=== PATIENT | female | born 1990 | race Caucasian/White ===

== ENCOUNTER 2018-10-25 23:15 | Emergency (ER) | payer MEDICAID, SELFPAY ==
[2018-10-25 23:16] VITALS: BP 123/78; PULSE 82; RESP 18; TEMP 36.2; O2SAT 96; BMI 30.7
--- NOTE | 2018-10-25 23:30 | ED.VISSUMM ---
- ER Visit Summary Date of Service: 10/25/18 Chief Complaint: Acute abdominal pain History of Present Illness: The patient is a 28 F who presents the emergency department 45 minutes after a severe lower. Patient states that she went to urinate and immediately afterwards began to have this pain. States it feels like somebody punched her in her uterus. She notes the pain got so bad that she had some nausea and vomiting. She notes a normal bowel movement earlier in the day. She is on oral control and is not set to start her period. She denies any urinary symptoms. No fevers or rashes. No vaginal discharge. Physical Examination: Afebrile vital signs are stable Gen: Well-nourished well-developed patient appears uncomfortable. Head: Normocephalic atraumatic Eyes: Perrl EOMI ENT: TMs clear no rhinorrhea moist mucous membranes Neck: Supple no lymphadenopathy no JVD nontender CVS: Regular rate rhythm no murmurs normal S1-S2 Respiratory: No distress clear to auscultation bilaterally chest nontender Abdomen: Soft mildly tender to palpation in the suprapubic region nondistended normal bowel sounds no masses Back: Nontender Extremity: Nontender no edema Skin: Normal color no rash Neuro: alert orientated ?3 CN II-XII intact normal strength sensation reflexes gait cerebellar Psych: Normal affect normal mood Test Results: CBC BMP and urine were negative. CT the pelvis was ordered. Emergency Department Course and Treatment: Received Toradol and Zofran. Care of the patient will be checked out to the night physician for check of CT and final disposition Impression: [] This note was generated with Letsmake dictation software. It may contain incorrect words, spelling, and punctuation that were not noted in review of the chart prior to signing <Sixto Holbrook - Last Filed: 10/26/18 00:28> - ER Visit Summary Patient was signed out to me to follow-up on CT the abdomen pelvis. This shows an enlarged left ovary. Torsion cannot be ruled out. Pelvic ultrasound was recommended. Pelvic ultrasound shows No ovarian torsion. Complex left ovarian lesion with cystic and solid components and septations. This likely represents a collapsing follicle with hemorrhage. Ovarian neoplasias within the differential but considered less likely. Patient was advised of these findings. She is much more comfortable on reevaluation. She was advised to follow-up with gynecology. She understands to return for new or worsening symptoms and was discharged home. This note was generated with Letsmake dictation software. It may contain incorrect words, spelling, and punctuation that were not noted in review of the chart prior to signing <Venkat Smith - Last Filed: 10/26/18 03:09> ED Disposition <Sixto Holbrook - Last Filed: 10/26/18 00:28> <Venkat Smith - Last Filed: 10/26/18 03:09> - Plan for ED Patient: Referrals: Jose Brown MD [Primary Care Provider] -
[2018-10-25] MEDS: Ondansetron 4 MG/2 ML Vial IV (23:42)
[2018-10-25] MEDS: Ketorolac 30 MG/ML Syringe IV (23:42)
[2018-10-25 23:44] LABS: Mucous, Urine 0 SEEN /hpf (<or=2+)
[2018-10-25 23:59] LABS: Absolute Neutrophil Count 5.2 X10^3/uL (2.0-7.7); Basophil# 0.05 X10^3/uL; Basophil% 0.6 % (0-1); Eosinophil# 0.16 X10^3/uL; Eosinophils% 1.8 % (0-5); Hematocrit 38.1 % (37-47); Hemoglobin 13.1 g/dl (12.0-15.0); Lymphocyte % 34.1 % (19-41); Mean Corp Hgb Conc 34.4 g/gl (32-36); Mean Corpuscular Hgb 30.2 pg (27.0-32.0); Mean Corpuscular Volume 87.8 fL (81-99); Mean Platelet Vol. 9.4 fl (6.2-12.0); Monocyte# 0.53 X10^3/uL; Monocyte% 5.8 % (0-10); Neutrophil # 5.23 X10^3/uL (2.7-7.7); Neutrophil % 57.5 % (47-70); Platelet Count 305 K/mm3 (150-450); RBC Distribution Width CV 12.1 % (11.6-14.6); RBC Distribution Width SD 37.8 fl (35.1-43.9); Red Blood Count 4.34 M/mm3 (4.2-5.4); White Blood Count 9.1 K/mm3 (4.4-11.0)
[2018-10-26] LABS: Color, Urine Yellow (Yellow); Glucose, Dipstick Normal (Normal); Ketone-Dipstick Negative (Negative); Leukocyte Esterase-Dipstick 25 /ul (Negative); Nitrite-Dipstick Negative (Negative); Occult Blood-Urine 10 /ul (Negative); Protein-Dipstick 30 mg/dl (Negative); Specific Gravity, Urine 1.025 (1.002-1.030); Urine Bilirubin Dipstick Negative (Negative); Urine Clarity Sl. Cloudy (Clear); Urine Urobilinogen 1 mg/dl (Normal)
[2018-10-26 00:01] LABS: Internal QC Validated? YES +Cl - CLEAR BKGD; Pregnancy, Urine Negative Negative
[2018-10-26 00:06] LABS: Anion Gap 5 (5-15); BUN 11 mg/dL (7-18); BUN/Creat Ratio 14.8 RATIO (10-20); Calcium,Total 9.3 mg/dL (8.5-10.1); Chloride 105 mmol/L (98-107); Creatinine, Serum 0.74 mg/dL (0.55-1.02); EST Glomerular Filtration Rate 98 mL/min (>60); Est Glom Filt Rate - Afr Amer 119 mL/min (>60); Estimated Creatinine Clearance 88.72 ml/min; Glucose 120 mg/dL (74-106); Potassium 3.9 mmol/L (3.5-5.1); Sodium Level 136 mmol/L (136-145)
[2018-10-26 00:15] LABS: Bacteria 1+ /hpf (None Seen); Red Blood Cells-Urine 0-5 SEEN /hpf (0-5); Squamous Epithelial Cells - UA 0-5 SEEN /hpf (5-10); White Blood Cells 5-10 SEEN /hpf (0-5)
[2018-10-26 00:17] LABS: POSITIVE COUNT NO; POSITIVE DIFFERENTIAL NO; POSITIVE MORPHOLOGY NO
--- NOTE | 2018-10-26 00:19 | CT_ITS ---
HISTORY: LOW MID ABDOMEN PAIN,NAUSEA AND VOMITING TECHNIQUE: Helically acquired images were obtained of the abdomen and pelvis without oral or IV contrast. A radiation dose optimization technique was used for this scan. COMPARISON: None FINDINGS: # of images incl. paperwork: 443 LUNG BASES: clear. CT abdomen: Bones are unremarkable. The gallbladder remains. The liver is enlarged and fattily infiltrated. Thespleen, pancreas, and adrenal glands are normal. Nonobstructing right nephrolithiasis without right hydronephrosis. I cannot follow the right ureter all the way to the urinary bladder, however, no ureteric stones are perceived Tiny nonobstructing left nephroliths as well.. The aorta is minimally disease with a tiny focus of calcific plaque. There is no intra-or extrahepatic biliary ductal dilatation. CT pelvis: No ascites is present. The the uterus is not enlarged. There may be enlargement of the left ovary. It is difficult to differentiate all margins of the left ovary from the adjacent small bowel on this noncontrast study. I estimate the margins of the left ovary to be 4.8 x 5 x 3.9 cm. The right ovary is not enlarged.. The appendix is normal. Series 2 image 106. The bladder is decompressed. Bowel gas pattern is normal. CT/Abdomen/Pelvis without Cont IMPRESSION: Enlarged left ovary. In this 28-year-old female this is likely due to a follicle. The possibility of torsion, however, cannot be excluded. Recommend comparison to do a pelvic ultrasound. Hepatic steatosis. Individualized dose optimization techniques were used for this CT. at 0102 Reported and signed by: Stephen Centeno MD Electronically Signed: Stephen Centeno MD at 1:01 EDT Tel , Service support ,
--- NOTE | 2018-10-26 01:08 | US_ITS ---
HISTORY: Pelvic pain. Comparison study is a CT scan of the abdomen and pelvis from less than 2 hours earlier. That demonstrated a heterogeneous enlarged left ovary 86 images. All images or endovaginal images. Findings: Many nabothian cysts. Physiologic amount of free fluid. The uterus is homogeneous in appearance and not enlarged. The endometrial stripe is well demonstrated and without flow on color Doppler imaging. The endometrial stripe thickness is 10 mm which is normal. Adnexal vasculature suggests the patient is multiparous. The uterus measures 9.1 x 4.3 x 5 cm. The right ovary measures 2.4 x 1.6 x 2.2 cm. Multiple follicles are present on the right ovary. Doppler Doppler imaging demonstrates flow. Pulse-wave Doppler imaging demonstrates arterial flow to right ovarian parenchyma. The left ovary measures 3.6 x 2.8 right 3.9 cm. There is a heterogeneous complex lesion within the left ovary. It is generally hypoechoic relative to the remainder of the left ovarian parenchyma, however, it is not anechoic. The largest portion of this lesion measures 3.1 cm. A more cystic component centrally measures 2 cm. Color Doppler imaging demonstrates flow within the periphery of this lesion within the left ovarian parenchyma. Pulse-wave Doppler imaging demonstrates arterial and venous waveforms. Another image of the left ovary demonstrates this heterogeneous complex cystic lesion within the left ovary to measure 2.9 x 1.5 x 3 cm. This is a accurate assessment. US/Transvaginal Non- IMPRESSION: No ovarian torsion. Complex left ovarian lesion with cystic and solid components and septations. This likely represents a collapsing follicle with hemorrhage. Ovarian neoplasias within the differential but considered less likely. Follow-up imaging in 6-12 weeks at different stage of the patient's menstrual cycle may be beneficial to assure resolution and assess for change. at 0303 Reported and signed by: Stephen Centeno MD Electronically Signed: Stephen Centeno MD at 3:02 EDT Tel , Service support ,
[2018-10-26 01:46] VITALS: BP 124/96; PULSE 77; RESP 17; O2SAT 100
--- NOTE | 2018-10-26 03:12 | ED.DEP ---
ED Disposition - Plan for ED Patient: Instructions: Ovarian Cyst Referrals: Jose Brown MD [Primary Care Provider] - Additional Instructions: Follow-up with gynecology. Although your ultrasound findings are most likely related to an ovarian cyst more serious problem such as cancer cannot be ruled out. You should have another ultrasound in 6-12 weeks.
[2018-10-26 03:21] VITALS: BP 127/80; PULSE 79; RESP 18; O2SAT 96
== END 2018-10-26 03:22 | disposition home or self-care (01) ==
LOC: ED 23:47
PROVIDERS: Emergency Provider Emergency Medicine; Family Provider Family Medicine; PCP Family Medicine
DX: N83.8 Other noninflammatory disorders of ovary, fallopian tube and broad ligament (principal); R10.30 Lower abdominal pain, unspecified; R11.2 Nausea with vomiting, unspecified; Z79.3 Long term (current) use of hormonal contraceptives
CPT/HCPCS: 74176; 76830; 80048; 81001; 81025; 85025; 93976; 96374; 96375; 99283; A4216; J2405

== ENCOUNTER 2022-04-20 22:58 | Emergency (ER) | payer MEDICAID, SELFPAY ==
[2022-04-20 22:59] VITALS: BP 129/93; PULSE 134; RESP 18; TEMP 35.6; BMI 35.6
--- NOTE | 2022-04-20 23:21 | CT_ITS ---
STUDY: CT ABDOMEN AND PELVIS WITH CONTRAST REASON FOR EXAM: Female, 31 years old. RUQ pain RADIATION DOSAGE (If Supplied By Facility): CTDIvol = ( 13.19 ) mGy, DLP = ( 1216.74 ) mGycm TECHNIQUE: Transaxial images were obtained from the dome of the diaphragm to the symphysis pubis without oral contrast. IV 100mL Isovue-370 was administered. Sagittal and coronal images were reconstructed. Individualized dose optimization techniques were used for this CT. COMPARISON: None. FINDINGS: The visualized lung bases are unremarkable. The visualized portions of the heart are within normal limits. Normal liver. Normal gallbladder and extrahepatic biliary system. Normal spleen. Normal pancreas. Normal bilateral adrenal glands. Multiple nonobstructive stones in the right kidney the largest measures 6 mm in diameter. Normal left kidney. Normal visualized stomach. There is thickening of the marinelli of small bowel loops in the distal jejunum and proximal ileum may represent inflammatory bowel disease. Normal colon. The appendix is visualized and appears normal. Normal abdominal aorta. Normal inferior vena cava. Normal retroperitoneum. Normal urinary bladder. There is small amount of fluid near the right lobe of the liver. There is moderate amount of free fluid in the pelvis. Normal abdominal wall. Normal osseous structures. CT/Abdomen/Pelvis W IV Cont ONLY IMPRESSION: There is small amount of fluid near the right lobe of the liver. There is moderate amount of free fluid in the pelvis. There is thickening of the marinelli of small bowel loops in the distal jejunum and proximal ileum may represent inflammatory bowel disease. Multiple nonobstructive stones in the right kidney the largest measures 6 mm in diameter. Electronically Signed: Andria Erwin MD at 1:30 EST ,
[2022-04-20 23:52] LABS: Absolute Lymphocyte Count 2.37 X10^3/uL (0.83-4.51); Absolute Neutrophil Count 15.3 X10^3/uL (2.0-7.7); Basophil# 0.09 X10^3/uL; Basophil% 0.5 % (0-1); Eosinophil# 0.24 X10^3/uL; Eosinophils% 1.3 % (0-5); Hematocrit 42.9 % (37-47); Hemoglobin 14.6 g/dL (12.0-15.0); Lymphocyte # 2.37 X10^3/ul (0.83-4.51); Lymphocyte % 12.6 % (19-41); Mean Corpuscular Volume 88.1 fL (81-99); Mean Platelet Vol. 9.2 fl (6.2-12.0); Monocyte# 0.68 X10^3/uL; Monocyte% 3.6 % (0-10); NRBC Flagged by Analyzer 0 % (0-5); Neutrophil # 15.27 X10^3/uL (2.7-7.7); Neutrophil % 81.4 % (47-70); Platelet Count 387 K/mm3 (150-450); RBC Distribution Width CV 12.5 % (11.6-14.6); RBC Distribution Width SD 40.3 fl (35.1-43.9); Red Blood Count 4.87 M/mm3 (4.2-5.4); White Blood Count 18.8 K/mm3 (4.4-11.0)
[2022-04-21] MEDS: HYDROmorphone 0.5 MG/0.5 ML SYRINGE IV ×2 (00:01→03:19)
[2022-04-21] MEDS: Ondansetron 4 MG/2 ML Vial IV ×2 (00:04→03:20)
[2022-04-21 00:10] LABS: AST(SGOT) 41 U/L (15-37); Alanine Aminotransfer ALT/SGPT 68 U/L (13-56); Albumin, Serum 3.7 g/dL (3.2-5.0); Alkaline Phosphatase 105 U/L (45-117); Anion Gap 10 (5-15); BUN 12 mg/dL (7-18); BUN/Creat Ratio 16.5 RATIO (10-20); Bilirubin, Direct 0.14 mg/dL (0.00-0.30); Calcium,Total 9.2 mg/dL (8.5-10.1); Chloride 106 mmol/L (98-107); Creatinine, Serum 0.73 mg/dL (0.55-1.02); EST Glomerular Filtration Rate 98 mL/min (>60); Est Glom Filt Rate - Afr Amer 119 mL/min (>60); Globulin 3.9 g/dL (2.2-4.2); Glucose 190 mg/dL (74-106); Lipase 82 U/L (73-393); Potassium 3.7 mmol/L (3.5-5.1); Protein, Total 7.6 g/dL (6.4-8.2); Sodium Level 137 mmol/L (136-145)
[2022-04-21 00:36] LABS: Red Blood Cells-Urine 0 SEEN /hpf (0-5)
[2022-04-21 00:38] LABS: Color, Urine Amber (Yellow); Glucose, Dipstick Normal (Normal); Leukocyte Esterase-Dipstick 100 /ul (Negative); Nitrite-Dipstick Negative (Negative); Occult Blood-Urine Negative /ul (Negative); Protein-Dipstick 100 mg/dl (Negative); Specific Gravity, Urine 1.025 (1.002-1.030); Urine Clarity Cloudy (Clear); Urine Urobilinogen 4 mg/dl (Normal)
[2022-04-21 00:39] LABS: Ketone-Dipstick 150 mg/dl (Negative); Urine Bilirubin Dipstick 3 mg/dL (Negative)
[2022-04-21 00:40] LABS: Calcium Oxalate Crystals Ur 0 SEEN /hpf (<or=2+); Coarse Granular Cast 0 SEEN /lpf (0-5 /lpf); Fine Granular Cast- Urine 0 SEEN /lpf (0-5); Red Cell Cast 0 SEEN /lpf (None Seen); Renal Epithelial Cells 0 SEEN /hpf (0-5); Transitional Epithelial - Ur 0 SEEN /hpf (0-5); Waxy Cast-Urine 0 SEEN /lpf (None Seen); White Cell Cast 0 SEEN /lpf (None Seen)
[2022-04-21 00:41] LABS: Internal QC Validated? YES +Cl - CLEAR BKGD; Pregnancy, Urine Negative Negative
[2022-04-21 00:47] LABS: Squamous Epithelial Cells - UA 0-5 SEEN /hpf (5-10); White Blood Cells 5-10 SEEN /hpf (0-5)
[2022-04-21 00:48] LABS: Bacteria 4+ /hpf (None Seen); Hyaline Cast 0-5 SEEN /lpf (0-5); Mucous, Urine 2+ /hpf (<or=2+)
--- NOTE | 2022-04-21 01:06 | EX.ED.DYSGE1 ---
HPI History of Present Illness Chief Complaint: Abd Pain Narrative Narrative: Patient is a 31-year-old female with past medical history of psoriasis as well as hypertension and anxiety. She states that over the past few weeks she has had 3 different bouts where she has developed abdominal pain after eating. She states that today she ate noodles mixed in a garlic and olive oil base and then roughly 1 hour later began with bouts of abdominal pain. She states that the pain is more in the right upper quadrant. She states pain has been persistent since approximately 3 PM and then started around 9 PM she developed bouts of nausea and vomiting also with loose stool/diarrhea. She states because of the recurrent nature of her symptoms and the fact that this seems to be worsening with time instead of improving she presents for evaluation [facility] Medical History Anxiety Hypertension Non-alcoholic fatty liver disease Psoriasis Home Medications adalimumab 40 mg/0.4 mL subcutaneous pen kit (Humira(CF) Pen) 40 mg subcut QWEEK 04/20/22 [History Last Taken Unknown] hydrochlorothiazide 12.5 mg capsule 25 mg PO DAILY 04/20/22 [History Last Taken Unknown] lisinopril 10 mg tablet 10 mg PO DAILY 04/20/22 [History Last Taken Unknown] norgestimate 0.25 mg-ethinyl estradiol 35 mcg tablet (Hui) 1 tab PO DAILY 04/20/22 [History Last Taken Unknown] paroxetine HCl 10 mg tablet 10 mg PO DAILY 04/20/22 [History Last Taken Unknown] cephalexin 500 mg capsule 500 mg PO TID 7 days #21 caps 04/21/22 [Rx Last Taken Unknown] ondansetron 4 mg disintegrating tablet 4 mg PO TID PRN nausea and vomiting #21 tabs 04/21/22 [Rx Last Taken Unknown] oxycodone-acetaminophen 5 mg-325 mg tablet (Percocet) 1 tab PO Q6H PRN pain 3 days #12 tabs 04/21/22 [Rx Last Taken Unknown] prednisone 20 mg tablet 40 mg PO DAILY 5 days #10 tabs 04/21/22 [Rx Last Taken Unknown] Allergy/AdvReac Type Severity Reaction Status Date / Time erythromycin base Allergy Hives Verified 04/20/22 23:21 metronidazole [From Flagyl] Allergy Itching Verified 04/20/22 23:21 Social History Smoking Status: Never smoker ROS ROS ED Constitutional Constitutional ED: Denies chills or fever(s) ENT ENT ED: Denies sore throat Cardiovascular Cardiovascular: Denies chest pain Respiratory/Chest Respiratory/Chest: Denies cough or dyspnea Gastrointestinal Gastrointestinal: Reports abdominal pain, diarrhea, nausea and vomiting Genitourinary Genitourinary ED: Denies dysuria or hematuria Musculoskeletal Musculoskeletal: Denies back pain or myalgias Integumentary Denies rash Neurologic Neurologic: Denies headache(s) Hematologic/Lymphatic Hematologic/Lymphatic: Denies easy bleeding or easy bruising EXAM Physical Exam Const Vital Signs: 04/20/22 22:59 04/20/22 22:59 04/21/22 01:11 Temperature 96.0 F L 96.0 F L Temperature Source Temporal Temporal Pulse Rate 134 H 134 H 93 Respiratory Rate 18 18 18 Blood Pressure 129/93 H 129/93 H Blood Pressure Mean 105 105 Pulse Ox 95 Oxygen Delivery Method Room Air Positive well nourished and well developed General Appearance ED: well developed HEENT Reports dry mucous membranes Mouth ED: Yes dry mucous membranes Mouth: dry mucous membranes Eyes PERRL and EOMs intact bilaterally General Eye ED: Negative for scleral icterus Neck supple Resp normal respiratory effort and clear to auscultation bilaterally Cardio regular rhythm Rate: tachycardic GI non-distended GI Narrative: Abdomen is soft and nondistended with hyperactive bowel sounds. There is mild diffuse pain on palpation but greatest in the right upper quadrant. However negative Sutton sign Auscultation: hyperactive bowel sounds Palpation: soft Back/Spine no CVA tenderness Extremity normal to inspection Neuro oriented x3 and CN's II-XII intact bilaterally Sensorium / Orientation: alert Psych mental status grossly normal Skin Skin Narrative: Patient has flaking erythematous skin consistent with psoriasis but no psych [place] changes to suggest infection MDM MDM MDM Narrative Medical decision making narrative: Patient presented to the ER tachycardic but otherwise with stable vitals. Her history of recurrent abdominal pain mainly after eating more localized to the right upper quadrant was concerning for gallbladder dysfunction. I cannot obtain an ultrasound at this time of night so a CAT scan was ordered. Patient's blood work revealed leukocytosis with a white count of 18.8 but she is afebrile and I feel this is most likely related to stress response versus secondary infection. Patient's liver enzymes are only slightly elevated and her lipase was normal. CT scan showed a normal-appearing gallbladder but she had thickened intestines with fluid most consistent with inflammatory bowel disorder. There is no signs of abscess perforation or obstruction associated with this. The patient denied any dysuria but she has +4 bacteria in her urine without contamination. Based on her immunosuppression status I do feel would be appropriate to put her on antibiotics. On reevaluation the patient's had improvement of her pain and she is able to tolerate water without any further bouts of vomiting. Therefore this time I will place her on antibiotics for the UTI she will follow-up with her family doctor to discuss outpatient ultrasound regarding her recurrent abdominal pain after eating but as she has had improvement of her pain and is able to tolerate fluids without further bouts of vomiting she is otherwise safe for discharge Lab Data Attestation: I reviewed the patient's lab results. Labs: Laboratory Results - last 24 hr 04/20/22 04/20/22 04/21/22 23:46 23:46 00:32 WBC 18.8 H RBC 4.87 Hgb 14.6 Hct 42.9 MCV 88.1 MCH 30.0 MCHC 34.0 RDW Std Deviation 40.3 RDW Coeff of [place] 12.5 Plt Count 387 MPV 9.2 Immature Gran % (Auto) 0.600 Neut % (Auto) 81.4 H Lymph % (Auto) 12.6 L [place] % (Auto) 3.6 Eos % (Auto) 1.3 Baso % (Auto) 0.5 Absolute Neuts (auto) 15.3 H Absolute Lymphs (auto) 2.37 Nucleated RBC % 0 Sodium 137 Potassium 3.7 Chloride 106 Carbon Dioxide 21.0 Anion Gap 10 BUN 12 Creatinine 0.73 Estim Creat Clear Calc 87.50 Est GFR (MDRD) Af Amer 119 Est GFR (MDRD) Non-Af 98 BUN/Creatinine Ratio 16.5 Glucose 190 H Calcium 9.2 Total Bilirubin 0.60 Direct Bilirubin 0.14 AST 41 H ALT 68 H Alkaline Phosphatase 105 Total Protein 7.6 Albumin 3.7 Globulin 3.9 Lipase 82 Urine Color Priti Urine Clarity Cloudy Urine pH 5.0 Ur Specific [place] 1.025 Urine Protein 100 H Urine Glucose (UA) Normal Urine Ketones 150 A* Urine Occult Blood Negative Urine Nitrite Negative Urine Bilirubin 3 H Urine Urobilinogen 4 H Ur Leukocyte Esterase 100 H Urine RBC 0 SEEN Urine WBC 5-10 SEEN Ur Squamous Epith Cells 0-5 SEEN Ur Transition Epith Cell 0 SEEN Ur Renal Epithelial Cell 0 SEEN Calcium Oxalate Crystal 0 SEEN Urine Bacteria 4+ Hyaline Casts 0-5 SEEN Fine Granular Casts 0 SEEN Coarse Granular Casts 0 SEEN Waxy Casts 0 SEEN RBC Casts 0 SEEN WBC Casts 0 SEEN Urine Mucus 2+ Urine Test Negative Radiography Diagnostic Testing: Clinical Impression(s) from Imaging Studies Abdomen/Pelvis CT 04/20/22 23:21 IMPRESSION: There is small amount of fluid near the right lobe of the liver. There is moderate amount of free fluid in the pelvis. There is thickening of the marinelli of small bowel loops in the distal jejunum and proximal ileum may represent inflammatory bowel disease. Multiple nonobstructive stones in the right kidney the largest measures 6 mm in diameter. Electronically Signed: Andria Erwin MD at 1:30 EST Reading Location ID and State: [address] [place] [address] Tel , Service support , Discharge Plan Triage Chief Complaint: Abd Pain ED Provider: Kei Ag Dx/Rx/DC Orders Clinical Impression: Urinary tract infection, Dehydration, Nausea & vomiting, Nonspecific abdominal pain Instructions: Abdominal Pain, Urinary Tract Infections in Women Prescriptions: New prednisone 20 mg tablet 40 mg PO DAILY 5 Days Qty: 10 0RF cephalexin 500 mg capsule 500 mg PO TID 7 Days Qty: 21 0RF ondansetron 4 mg tablet,disintegrating 4 mg PO TID PRN (Reason: nausea and vomiting) Qty: 21 0RF oxycodone-acetaminophen [Percocet] 5-325 mg tablet 1 tab PO Q6H PRN (Reason: pain) 3 Days Qty: 12 0RF No Action norgestimate-ethinyl estradiol [Hui] 0.25-35 mg-mcg tablet 1 tab PO DAILY paroxetine HCl 10 mg tablet 10 mg PO DAILY lisinopril 10 mg tablet 10 mg PO DAILY hydrochlorothiazide 12.5 mg capsule 25 mg PO DAILY Label Comments: TAKE 1 CAPSULE BY MOUTH ONCE DAILY Humira(CF) Pen 40 mg/0.4 mL pen injector kit 40 mg SUBCUT QWEEK Rx Instructions: TAKEN EVERY OTHER WEEK PER PT. Primary Care Provider: Jose Brown Referrals: Jose Brown MD [Primary Care Provider] - Activity Restrictions/Additional Instructions: Please talk to your family doctor about getting an outpatient ultrasound of your gallbladder based on your recurrent pain after eating. Take the medication as directed to help control your symptoms and return to the ER should you have any further concerns Disposition Disposition: Home, Self Care
[2022-04-21 01:11] VITALS: PULSE 93; RESP 18; O2SAT 95
[2022-04-21] MEDS: Ceftriaxone 1 GM/50 ML BAG IV (01:58)
[2022-04-21] MEDS: 0.9% Normal Saline 1,000 ML 999 ML IV ×2 (01:58)
[2022-04-21] MEDS: MethylPREDNISolone 125 MG/2 ML Vial IV (01:58)
== END 2022-04-21 04:13 | disposition home or self-care (01) ==
PROVIDERS: Emergency Provider Emergency Medicine; PCP Family Medicine; Visit Provider Emergency Medicine
DX: N39.0 Urinary tract infection, site not specified (principal); D84.9 Immunodeficiency, unspecified; E86.0 Dehydration; R11.2 Nausea with vomiting, unspecified; I10 Essential (primary) hypertension; F41.9 Anxiety disorder, unspecified; Z79.899 Other long term (current) drug therapy
CPT/HCPCS: 74177; 80048; 80076; 81001; 81025; 83690; 85025; 87086; 87088; 96365; 96375; 96376; 99282; J7030; Q9967; A4216; J2405

== ENCOUNTER 2022-10-29 13:19 | Emergency (ER) | payer MEDICAID, SELFPAY ==
[2022-10-29 13:20] VITALS: BP 122/95; PULSE 121; RESP 16; TEMP 36.2; O2SAT 96; BMI 30.9
--- NOTE | 2022-10-29 13:40 | CT_ITS ---
STUDY: CT ABDOMEN AND PELVIS WITH CONTRAST REASON FOR EXAM: Female, 32 years old. Abdominal pain with nausea and vomiting. RADIATION DOSAGE (If Supplied By Facility): CTDIvol = ( 15.23 ) mGy, DLP = ( 859.29 ) mGycm TECHNIQUE: Transaxial images were obtained from the dome of the diaphragm to the symphysis pubis without oral contrast. IV 100mL Isovue-300 was administered. Sagittal and coronal images were reconstructed. Individualized dose optimization techniques were used for this CT. COMPARISON: Comparison is made with prior study dated April 21, 2022. FINDINGS: The visualized lung bases are unremarkable. The visualized portions of the heart are within normal limits. There is decreased attenuation of the liver consistent with steatosis. The patient is status post cholecystectomy. Normal spleen. Normal pancreas. Normal bilateral adrenal glands. 6 mm nonobstructive calculus in the midpole region of the right kidney. 1.3 cm cyst in the anterior upper aspect of the right kidney. Normal left kidney. Normal visualized stomach. Several small bowel loops in the mid and right lower quadrant demonstrates circumferential wall thickening. Inflammatory changes should be ruled out. Does the patient have known inflammatory bowel disease. Scattered sigmoid diverticula. The appendix is visualized and appears normal. Normal abdominal aorta. Normal inferior vena cava. Normal retroperitoneum. Normal urinary bladder. Small amount of ascitic fluid is seen in the pelvis. A small amount of fluid is also seen in the paracolic gutters bilaterally slightly prominent on the left side. Minimal amount of free fluid is seen in the right Morison''s pouch. Normal abdominal wall. Normal osseous structures. CT/Abdomen/Pelvis W IV Cont ONLY IMPRESSION: Free fluid in the pelvis as well as small amount of fluid in both paracolic gutters worse on the left side. Small bowel mural thickening in the mid aspect of the abdomen as well as in the right lower quadrant. Inflammatory bowel disease should be ruled out. Scattered sigmoid diverticula. Electronically Signed: Cornelius Hoyos MD at 15:02 EDT ,
--- NOTE | 2022-10-29 13:41 | ED.VIS.GI ---
HPI HPI - GI History of Present Illness Chief Complaint: Abd Pain Detail of Chief Complaint: Diffuse abdominal pain for months. Weight loss. Informant: patient Abdominal Pain/Flank Pain Onset: Month(s) Context: Gradual Onset Timing: Intermittent Quality: Cramping Location: Diffuse Current Severity: Mild Maximum Severity: Mild Worsened by: Nothing Relieved by: Nothing Nausea/Vomiting/Emesis GI Symptom: Positive for Nausea and Vomiting Severity: Mild Diarrhea/Melena/Hematochezia GI Symptom: Negative for Diarrhea, Melena or Hematochezia Associated Symptoms Associated Symptoms: Negative for Dysuria, Frequency, Hematuria or Urgency Narrative Narrative: 32-year-old female history of psoriasis. And hypertension. She has been having abdominal cramping after eating with nausea and vomiting for months. In August Dr. Sixto Sanders did a laparoscopic cholecystectomy. She has had continued symptoms since that time and has had no improvement. She is trying to eat but she had a 30 pound weight loss in last several months. She denies fever. She denies any dysuria. No diarrhea mild constipation. No prior other abdominal surgeries other than a cholecystectomy. Last menstrual period was 2 to 3 weeks ago and normal. No history of inflammatory bowel disease. Prior similar symptoms: Yes Recent Illness/Hospitalization: No [facility] Medical History Anxiety Hypertension Non-alcoholic fatty liver disease Psoriasis Home Medications adalimumab 40 mg/0.4 mL subcutaneous pen kit (Humira(CF) Pen) 40 mg subcut QWEEK 04/20/22 [History Last Taken Unknown] hydrochlorothiazide 12.5 mg capsule 25 mg PO DAILY 04/20/22 [History Last Taken Unknown] lisinopril 10 mg tablet 10 mg PO DAILY 04/20/22 [History Last Taken Unknown] norgestimate 0.25 mg-ethinyl estradiol 35 mcg tablet (Hui) 1 tab PO DAILY 04/20/22 [History Last Taken Unknown] paroxetine HCl 10 mg tablet 10 mg PO DAILY 04/20/22 [History Last Taken Unknown] cephalexin 500 mg capsule 500 mg PO TID 7 days #21 caps 04/21/22 [Rx Last Taken Unknown] ondansetron 4 mg disintegrating tablet 4 mg PO TID PRN nausea and vomiting #21 tabs 04/21/22 [Rx Last Taken Unknown] oxycodone-acetaminophen 5 mg-325 mg tablet (Percocet) 1 tab PO Q6H PRN pain 3 days #12 tabs 04/21/22 [Rx Last Taken Unknown] prednisone 20 mg tablet 40 mg (2 x 20 mg) PO DAILY 5 days #10 tabs 04/21/22 [Rx Last Taken Unknown] ondansetron 4 mg disintegrating tablet 4 mg PO Q6H PRN nausea and vomiting #10 tabs 10/29/22 [Rx Last Taken Unknown] Allergy/AdvReac Type Severity Reaction Status Date / Time erythromycin base Allergy Hives Verified 10/29/22 13:20 metronidazole [From Flagyl] Allergy Itching Verified 10/29/22 13:20 Social History Smoking Status: Never smoker ROS ROS ED ROS Narrative Diffuse abdominal pain. Nausea vomiting. Weight loss. Review of Systems ROS Unobtainable: Denies due to encephalopathy Constitutional Constitutional ED: Denies chills or fever(s) ENT ENT ED: Denies ear pain Cardiovascular Cardiovascular: Denies chest pain Respiratory/Chest Respiratory/Chest: Denies cough or dyspnea Gastrointestinal Gastrointestinal: Reports abdominal pain, constipation, nausea and vomiting; Denies diarrhea or melena Genitourinary Genitourinary ED: Denies dysuria or hematuria Musculoskeletal Musculoskeletal: Denies arthralgias Integumentary Denies abscess Neurologic Neurologic: Denies headache(s) Psychiatric Psychiatric: Denies anxiety Endocrine Endocrinology: Denies polydipsia Hematologic/Lymphatic Hematologic/Lymphatic: Denies easy bleeding Allergic/Immunologic Allergic/Immunologic ED: Denies mouth swelling or tongue swelling EXAM Physical Exam Narrative Exam Narrative: Well-appearing 32-year-old female. Vital signs stable afebrile. She does not look septic toxic in any distress. She does not look significantly dehydrated. H EENT exam unremarkable. Moist mucous membranes. Neck nontender no lymphadenopathy. Lungs clear to auscultation bilaterally. Heart tachycardic rate about 115 no murmur. Abdomen soft nondistended normal bowel sounds no peritoneal signs. Very mildly tender. No localizing tenderness. No hernia or mass. No signs of obstruction. No McBurney's point tenderness. Moving all 4 extremities. Nontender no edema. Back nontender. Neurologically she is awake and alert with no focal motor deficits. Benign exam. Const Vital Signs: 10/29/22 13:20 Temperature 97.2 F L Temperature Source Temporal Pulse Rate 121 H Respiratory Rate 16 Blood Pressure 122/95 H Blood Pressure Mean 104 Pulse Ox 96 Oxygen Delivery Method Room Air Positive well nourished and well developed; Negative for cachectic, contractures or unkempt General Appearance ED: well developed and NAD; Negative for unkempt, cachectic, contractures or pallor Nutritional Appearance: Negative for cachectic HEENT Reports moist mucous membranes; Denies dry mucous membranes normocephalic and atraumatic; Negative for trauma or tenderness Mouth ED: No dry mucous membranes Mouth: No dry mucous membranes Eyes PERRL and EOMs intact bilaterally General Eye ED: Negative for pale conjunctiva or scleral icterus Neck no lymphadenopathy, supple and no JVD General: Negative for tenderness Carotids: Negative for other Lymph Lymphatic: Negative for other Resp normal respiratory effort and clear to auscultation bilaterally Effort and Inspection: Negative for respiratory distress Auscultation: Negative for rales, rhonchi or wheezes Cardio regular rhythm, S1 normal heart sound, S2 normal heart sound and no murmurs; Negative for regular rate Rate: tachycardic GI non-distended and no masses; Negative for non-tender Inspection: Negative for abdominal distention Auscultation: normoactive bowel sounds Palpation: soft and tender; Negative for guarding, rigid, hepatomegaly, splenomegaly, hernia, mass, pulsatile mass or rebound tenderness present Back/Spine no CVA tenderness Thoracic Spine / Upper Back: Negative for thoracic spinal tenderness Lumbar Spine / Lower Back: Negative for lumbar spinal tenderness Coccyx: Negative for other Extremity full ROM General Extremety ED: Negative for edema or tenderness General Extremity: Negative for edema Neuro CN's II-XII intact bilaterally and moves all extremities Sensorium / Orientation: alert, oriented to person, oriented to place and oriented to time; Negative for orientation impaired, confused, lethargic or stuporous Motor Exam: strength 5/5 throughout; Negative for general weakness Psych mental status grossly normal and thought process normal Appearance: Negative for unkempt Attitude: No agitated Mood & Affect: Negative for depressed, anxious or tearful Skin no wounds General Skin Exam: Negative for jaundice or pallor Lesions: no lesions Rashes: no rashes Trauma: Negative for abrasion Nails: Negative for discolored MDM MDM MDM Narrative Medical decision making narrative: 32-year-old with postprandial abdominal cramping, pain, nausea and vomiting. Prior cholecystectomy without relief of her symptoms. CAT scan and labs are pending. Treated with IV fluids and Zofran for nausea. Repeat exam at 2:41 PM patient doing well. Abdomen benign. We went over all of her test results. Awaiting CAT scan results. Patient doing well at 3:08 PM. CAT scan returned showing pelvis for fluid and and mural thickening of the small bowel. She will need further evaluation as an outpatient for possible inflammatory bowel disease versus other. All this will be discussed with the patient prior to discharge. She will be referred to surgery and GI for further evaluation and possible colonoscopy. History & Record Review Discussion w/independent historian: Patient Additional record(s) reviewed:: Prior inpatient record, Prior outpatient record, Prior ED visit and Prior labs Lab Data Attestation: I reviewed the patient's lab results. Lab results narrative: CBC normal. White count of 10. H&H of 13 and 39. Platelets 420. Chemistries show sodium 134. Potassium 3.4. Gap of 8. Normal BUN and creatinine is 0.8. Glucose 150. Liver enzymes unremarkable. Lipase is normal at 24. Serum test is negative. Unremarkable labs. Labs: Laboratory Results - last 24 hr 10/29/22 14:00 WBC 10.2 RBC 4.50 Hgb 13.8 Hct 39.5 MCV 87.8 MCH 30.7 MCHC 34.9 RDW Std Deviation 39.5 RDW Coeff of [place] 12.2 Plt Count 420 MPV 8.9 Immature Gran % (Auto) 0.300 Neut % (Auto) 67.8 Lymph % (Auto) 24.1 Bartholomew % (Auto) 4.5 Eos % (Auto) 2.5 Baso % (Auto) 0.8 Absolute Neuts (auto) 6.9 Absolute Lymphs (auto) 2.46 Nucleated RBC % 0 Sodium 134 L Potassium 3.4 L Chloride 100 Carbon Dioxide 26.0 Anion Gap 8 BUN 11 Creatinine 0.87 Estim Creat Clear Calc 72.74 Est GFR (MDRD) Af Amer 96 Est GFR (MDRD) Non-Af 79 BUN/Creatinine Ratio 12.6 Glucose 150 H Calcium 9.8 Total Bilirubin 0.50 AST 31 ALT 58 H Alkaline Phosphatase 117 Total Protein 7.9 Albumin 3.5 Globulin 4.4 H Albumin/Globulin Ratio 0.8 L Lipase 24 Serum , Qual NEGATIVE Radiography Diagnostic Testing: Clinical Impression(s) from Imaging Studies Abdomen/Pelvis CT 10/29/22 13:40 IMPRESSION: Free fluid in the pelvis as well as small amount of fluid in both paracolic gutters worse on the left side. Small bowel mural thickening in the mid aspect of the abdomen as well as in the right lower quadrant. Inflammatory bowel disease should be ruled out. Scattered sigmoid diverticula. Electronically Signed: Cornelius Hoyos MD at 15:02 EDT , Discharge Plan Triage Chief Complaint: Abd Pain ED Provider: Davon Solano Dx/Rx/DC Orders Clinical Impression: Nausea & vomiting, Abdominal pain Instructions: Abdominal Pain, ED Vomiting (Adult) Prescriptions: New ondansetron 4 mg tablet,disintegrating 4 mg PO Q6H PRN (Reason: nausea and vomiting) Qty: 10 0RF No Action norgestimate-ethinyl estradiol [Hui] 0.25-35 mg-mcg tablet 1 tab PO DAILY paroxetine HCl 10 mg tablet 10 mg PO DAILY lisinopril 10 mg tablet 10 mg PO DAILY hydrochlorothiazide 12.5 mg capsule 25 mg PO DAILY Patient Comments: TAKE 1 CAPSULE BY MOUTH ONCE DAILY Humira(CF) Pen 40 mg/0.4 mL pen injector kit 40 mg SUBCUT QWEEK Rx Instructions: TAKEN EVERY OTHER WEEK PER PT. prednisone 20 mg tablet 40 mg PO DAILY 5 Days Qty: 10 0RF cephalexin 500 mg capsule 500 mg PO TID 7 Days Qty: 21 0RF ondansetron 4 mg tablet,disintegrating 4 mg PO TID PRN (Reason: nausea and vomiting) Qty: 21 0RF oxycodone-acetaminophen [Percocet] 5-325 mg tablet 1 tab PO Q6H PRN (Reason: pain) 3 Days Qty: 12 0RF Primary Care Provider: Jose Brown Referrals: Sixto Sanders MD [Med Staff - Active Staff] - As soon as possible Friend,DO Richard [Med Staff - Active Staff] - As soon as possible Jose Brown MD [Primary Care Provider] - Activity Restrictions/Additional Instructions: Call and follow-up either with Dr. Sanders, your primary care Dr. Brown or Dr. Murillo who is a GI doctor here at the hospital. You need further evaluation of this abdominal pain with nausea and vomiting after you eat. You may need a colonoscopy with biopsies. The CAT scan showed some mild normalities of the colon. Zofran as needed for nausea. Plenty of fluids and rest. [place] diet increase slowly as tolerated. Disposition Disposition: Home, Self Care
[2022-10-29] MEDS: 0.9% Normal Saline 1,000 ML 1000 ML IV (13:59)
[2022-10-29] MEDS: Ondansetron 4 MG/2 ML Vial IV (13:59)
[2022-10-29 14:08] LABS: Absolute Lymphocyte Count 2.46 X10^3/uL (0.83-4.51); Absolute Neutrophil Count 6.9 X10^3/uL (2.0-7.7); Basophil# 0.08 X10^3/uL; Basophil% 0.8 % (0-1); Eosinophil# 0.26 X10^3/uL; Eosinophils% 2.5 % (0-5); Hematocrit 39.5 % (37-47); Hemoglobin 13.8 g/dL (12.0-15.0); Lymphocyte # 2.46 X10^3/ul (0.83-4.51); Lymphocyte % 24.1 % (19-41); Mean Corp Hgb Conc 34.9 g/dL (32-36); Mean Corpuscular Hgb 30.7 pg (27.0-32.0); Mean Corpuscular Volume 87.8 fL (81-99); Mean Platelet Vol. 8.9 fl (6.2-12.0); Monocyte# 0.46 X10^3/uL; Monocyte% 4.5 % (0-10); NRBC Flagged by Analyzer 0 % (0-5); Neutrophil # 6.92 X10^3/uL (2.7-7.7); Neutrophil % 67.8 % (47-70); Platelet Count 420 K/mm3 (150-450); RBC Distribution Width CV 12.2 % (11.6-14.6); RBC Distribution Width SD 39.5 fl (35.1-43.9); White Blood Count 10.2 K/mm3 (4.4-11.0)
[2022-10-29 14:23] LABS: Internal QC Validated? YES +Cl - CLEAR BKGD; Pregnancy, Serum, hCG Quali. NEGATIVE Negative
[2022-10-29 14:27] LABS: ALB/GLOB Ratio 0.8 RATIO (0.9-2.4); AST(SGOT) 31 U/L (15-37); Alanine Aminotransfer ALT/SGPT 58 U/L (13-56); Albumin, Serum 3.5 g/dL (3.2-5.0); Alkaline Phosphatase 117 U/L (45-117); Anion Gap 8 (5-15); BUN 11 mg/dL (7-18); BUN/Creat Ratio 12.6 RATIO (10-20); Calcium,Total 9.8 mg/dL (8.5-10.1); Chloride 100 mmol/L (98-107); Creatinine, Serum 0.87 mg/dL (0.55-1.02); EST Glomerular Filtration Rate 79 mL/min (>60); Est Glom Filt Rate - Afr Amer 96 mL/min (>60); Estimated Creatinine Clearance 72.74 ml/min; Globulin 4.4 g/dL (2.2-4.2); Glucose 150 mg/dL (74-106); Lipase 24 U/L (13-75); Potassium 3.4 mmol/L (3.5-5.1); Protein, Total 7.9 g/dL (6.4-8.2); Sodium Level 134 mmol/L (136-145)
== END 2022-10-29 15:23 | disposition home or self-care (01) ==
LOC: ED 15:08
PROVIDERS: Emergency Provider Emergency Medicine; PCP Family Medicine; Visit Provider Emergency Medicine
DX: R10.9 Unspecified abdominal pain (principal); R11.2 Nausea with vomiting, unspecified; I10 Essential (primary) hypertension; Z90.49 Acquired absence of other specified parts of digestive tract; L40.9 Psoriasis, unspecified; Z79.899 Other long term (current) drug therapy; Z79.3 Long term (current) use of hormonal contraceptives; F41.9 Anxiety disorder, unspecified
CPT/HCPCS: 74177; 80053; 83690; 84703; 85025; 96361; 96374; 99282; J7030; Q9967; A4216; J2405

== ENCOUNTER 2023-01-07 15:23 | Emergency (ER) | payer MEDICAID, SELFPAY ==
[2023-01-07 15:24] VITALS: BP 124/77; PULSE 97; RESP 15; TEMP 36.3; O2SAT 98
--- NOTE | 2023-01-07 16:47 | EX.ED.DYSGE1 ---
HPI History of Present Illness Chief Complaint: Dizziness Narrative Narrative: 32-year-old female presenting to the emergency department chief complaint of nausea vomiting. Patient states that she has a history of psoriasis and was recently given a diagnosis of idiopathic gastroparesis. She states that she woke this morning and her stomach did not quite feel normal. She did eat some breakfast and around [place] went to the [place] with [place] children. She states that her little after 1300 she drank some Gatorade and try to eat a garden salad. She had nausea and vomiting shortly thereafter. She was pale and diaphoretic but eventually recovered in the first-aid tent. When they went to set her up to leave she again got pale and felt lightheaded. She was transferred to the emergency department. The patient states that she is feeling about the same as she did this morning but would like some crackers and water. She does not feel distended. No fevers chills diarrhea or URI symptoms. [facility] Medical History Anxiety Hypertension Non-alcoholic fatty liver disease Psoriasis Home Medications adalimumab 40 mg/0.4 mL subcutaneous pen kit (Humira(CF) Pen) 40 mg subcut QWEEK 04/20/22 [History Last Taken Unknown] hydrochlorothiazide 12.5 mg capsule 25 mg PO DAILY 04/20/22 [History Last Taken Unknown] lisinopril 10 mg tablet 10 mg PO DAILY 04/20/22 [History Last Taken Unknown] norgestimate 0.25 mg-ethinyl estradiol 35 mcg tablet (Hui) 1 tab PO DAILY 04/20/22 [History Last Taken Unknown] paroxetine HCl 10 mg tablet 10 mg PO DAILY 04/20/22 [History Last Taken Unknown] cephalexin 500 mg capsule 500 mg PO TID 7 days #21 caps 04/21/22 [Rx Last Taken Unknown] ondansetron 4 mg disintegrating tablet 4 mg PO TID PRN nausea and vomiting #21 tabs 04/21/22 [Rx Last Taken Unknown] oxycodone-acetaminophen 5 mg-325 mg tablet (Percocet) 1 tab PO Q6H PRN pain 3 days #12 tabs 04/21/22 [Rx Last Taken Unknown] prednisone 20 mg tablet 40 mg (2 x 20 mg) PO DAILY 5 days #10 tabs 04/21/22 [Rx Last Taken Unknown] ondansetron 4 mg disintegrating tablet 4 mg PO Q6H PRN nausea and vomiting #10 tabs 10/29/22 [Rx Last Taken Unknown] Allergy/AdvReac Type Severity Reaction Status Date / Time erythromycin base Allergy Hives Verified 01/07/23 15:25 metronidazole [From Flagyl] Allergy Itching Verified 01/07/23 15:25 Social History Smoking Status: Never smoker ROS ROS ED Constitutional Constitutional ED: Denies chills or weight loss Eyes Eyes: Denies change in vision or diplopia ENT ENT ED: Denies ear pain, rhinorrhea or sore throat Cardiovascular Cardiovascular: Denies chest pain, orthopnea, palpitations or racing heartbeat Respiratory/Chest Respiratory/Chest: Denies cough, dyspnea or orthopnea Gastrointestinal Gastrointestinal: Reports nausea and vomiting; Denies abdominal pain or diarrhea Genitourinary Genitourinary ED: Denies dysuria, hematuria or urinary frequency Musculoskeletal Musculoskeletal: Denies arthralgias or myalgias Integumentary Denies abscess or rash Neurologic Neurologic: Denies headache(s) or weakness Psychiatric Psychiatric: Denies anxiety, depression, suicidal ideation or suicidal thoughts Endocrine Endocrinology: Denies polydipsia, polyphagia or polyuria Allergic/Immunologic Allergic/Immunologic ED: Denies mouth swelling, tongue swelling or urticaria EXAM Physical Exam Const Vital Signs: 01/07/23 15:24 Temperature 97.4 F L Temperature Source Temporal Pulse Rate 97 Respiratory Rate 15 Blood Pressure 124/77 H Blood Pressure Mean 92 Pulse Ox 98 Oxygen Delivery Method Room Air Positive well nourished and well developed General Appearance ED: well developed HEENT Reports normocephalic, head/scalp atraumatic and moist mucous membranes Eyes PERRL and EOMs intact bilaterally Neck no lymphadenopathy, supple and no JVD Resp normal respiratory effort and clear to auscultation bilaterally Cardio regular rate, regular rhythm and no murmurs GI normal to inspection, nondistended, normoactive bowel sounds and non-tender Palpation: soft Back/Spine no CVA tenderness and normal ROM Extremity normal to inspection General Extremety ED: Negative for edema General Extremity: Negative for edema Neuro oriented x3 and CN's II-XII intact bilaterally Sensorium / Orientation: alert Motor Exam: strength 5/5 throughout Psych mental status grossly normal Mood & Affect: Negative for depressed or tearful Skin no rashes or lesions noted and no wounds MDM MDM MDM Narrative Medical decision making narrative: Patient received a liter of IV fluids. BMP was checked and shows a potassium of 3.3. test is negative. Patient's been tolerating p.o. fluids and crackers. She will be discharged home with supportive care. Patient to follow-up with her doctor return for worsening or concerns. Lab Data Labs: Laboratory Results - last 24 hr 01/07/23 16:58 Sodium 136 Potassium 3.3 L Chloride 101 Carbon Dioxide 25.0 Anion Gap 10 BUN 10 Creatinine 0.91 Est GFR (MDRD) Af Amer 92 Est GFR (MDRD) Non-Af 76 BUN/Creatinine Ratio 11.0 Glucose 102 Calcium 9.6 Serum , Qual NEGATIVE Discharge Plan Triage Chief Complaint: Dizziness ED Provider: Sixto Holbrook Dx/Rx/DC Orders Prescriptions: No Action norgestimate-ethinyl estradiol [Hui] 0.25-35 mg-mcg tablet 1 tab PO DAILY paroxetine HCl 10 mg tablet 10 mg PO DAILY lisinopril 10 mg tablet 10 mg PO DAILY hydrochlorothiazide 12.5 mg capsule 25 mg PO DAILY Patient Comments: TAKE 1 CAPSULE BY MOUTH ONCE DAILY Humira(CF) Pen 40 mg/0.4 mL pen injector kit 40 mg SUBCUT QWEEK Rx Instructions: TAKEN EVERY OTHER WEEK PER PT. prednisone 20 mg tablet 40 mg PO DAILY 5 Days Qty: 10 0RF cephalexin 500 mg capsule 500 mg PO TID 7 Days Qty: 21 0RF ondansetron 4 mg tablet,disintegrating 4 mg PO TID PRN (Reason: nausea and vomiting) Qty: 21 0RF oxycodone-acetaminophen [Percocet] 5-325 mg tablet 1 tab PO Q6H PRN (Reason: pain) 3 Days Qty: 12 0RF ondansetron 4 mg tablet,disintegrating 4 mg PO Q6H PRN (Reason: nausea and vomiting) Qty: 10 0RF Primary Care Provider: Jose Brown Referrals: Jose Brown MD [Primary Care Provider] -
[2023-01-07] MEDS: 0.9% Normal Saline (1000mL) 1,000 ML 1000 ML IV (16:55)
[2023-01-07 17:15] LABS: Internal QC Validated? YES +Cl - CLEAR BKGD; Pregnancy, Serum, hCG Quali. NEGATIVE Negative
[2023-01-07 17:20] LABS: Anion Gap 10 (5-15); BUN 10 mg/dL (7-18); Calcium,Total 9.6 mg/dL (8.5-10.1); Chloride 101 mmol/L (98-107); Creatinine, Serum 0.91 mg/dL (0.55-1.02); EST Glomerular Filtration Rate 76 mL/min (>60); Est Glom Filt Rate - Afr Amer 92 mL/min (>60); Glucose 102 mg/dL (74-106); Potassium 3.3 mmol/L (3.5-5.1); Sodium Level 136 mmol/L (136-145)
[2023-01-07 18:05] VITALS: PULSE 74; RESP 18; O2SAT 97
== END 2023-01-07 18:08 | disposition home or self-care (01) ==
PROVIDERS: Emergency Provider Emergency Medicine; PCP Family Medicine; Visit Provider Emergency Medicine
DX: R42 Dizziness and giddiness (principal); I10 Essential (primary) hypertension; Z79.899 Other long term (current) drug therapy; L40.9 Psoriasis, unspecified; Z79.3 Long term (current) use of hormonal contraceptives; F41.9 Anxiety disorder, unspecified
CPT/HCPCS: 80048; 84703; 96360; 99285; A4216

== ENCOUNTER → 2023-02-25 | Outpatient (CLI) | payer MEDICAID, SELFPAY ==
[2023-02-27 17:07] LABS: Hepatitis B Core Ab Total Negative (Negative); QNTFERON TB Mitogen Value > 10.00 IU/mL (.); QNTFERON TB Nil Value 0.01 IU/mL (.); QNTFERON TB1+ Ag Value 0.01 IU/mL (.); QNTFERON TB2+ Ag Value 0.02 IU/mL (.); QNTIFERON TB Positive Criteria Negative (Negative)
== END | disposition home or self-care (01) ==
LOC: MTLAB 13:02
PROVIDERS: PCP Family Medicine; Referring Provider Physician Assistant Medical; Visit Provider Physician Assistant Medical
DX: L40.0 Psoriasis vulgaris (principal); Z79.899 Other long term (current) drug therapy; L01.01 Non-bullous impetigo
CPT/HCPCS: 36415; 86480; 86704

== ENCOUNTER → 2024-01-29 | Outpatient (CLI) | payer MEDICAID, SELFPAY ==
[2024-01-31 17:07] LABS: QNTFERON TB Mitogen Value > 10.00 IU/mL (.); QNTFERON TB Nil Value 0.01 IU/mL (.); QNTFERON TB1+ Ag Value 0.03 IU/mL (.); QNTFERON TB2+ Ag Value 0.03 IU/mL (.); QNTIFERON TB Positive Criteria Negative (Negative)
== END | disposition home or self-care (01) ==
LOC: MTLAB 11:19
PROVIDERS: PCP Family Medicine; Referring Provider Physician Assistant; Visit Provider Physician Assistant
DX: L40.0 Psoriasis vulgaris (principal)
CPT/HCPCS: 36415; 86480

== ENCOUNTER 2025-04-26 15:18 | Outpatient (RCR) | payer MEDICAID, OTHER, SELFPAY | END 2025-04-28 23:59 | LOC: NS 15:18 | PROVIDERS: PCP Family Medicine; Referring Provider Obstetrics & Gynecology; Visit Provider Obstetrics & Gynecology | DX: Z71.3 Dietary counseling and surveillance (principal); R73.03 Prediabetes; E88.819 Insulin resistance, unspecified; E78.5 Hyperlipidemia, unspecified; I10 Essential (primary) hypertension; E78.1 Pure hyperglyceridemia; E88.810 Metabolic syndrome; E66.812 Obesity, class 2; Z68.33 Body mass index [BMI] 33.0-33.9, adult ==